=== PATIENT | male | born 1960 | race Caucasian/White ===

== ENCOUNTER 2018-02-11 07:08 | Day surgery (SDC) | payer BC ==
--- NOTE | 2018-02-11 06:26 | History and Physical - [place] ---
CHIEF COMPLAINT/HISTORY OF CHIEF COMPLAINT: This patient with an implanted spinal catheter infusion trial Hydromorphone presents for permanent pump implant. At 0.23 mg per day he is achieving 75-85% pain control. Due to the failure of all other therapies and the success of the trial, he is here for implantation of a permanent system. PAST MEDICAL HISTORY: Noncontributory. PAST SURGICAL HISTORY: Knee surgery, ankle surgery, shoulder surgery, and lumbar spinal surgery. MEDICATIONS ON ADMISSION: List to be provided. ALLERGIES: None. FAMILY/PSYCHOSOCIAL HISTORY: Social history - Caffeine. Family history - Coronary artery disease. SYSTEMS REVIEW: The patient is appropriate in no acute distress. The remainder of the systems review is positive for glasses, degenerative arthritis , and difficulty sleeping. PHYSICAL EXAMINATION: Height is 6', weight is 270. No vital signs. HEENT: Within normal limits. LUNGS: Clear. HEART: Regular rate and rhythm. ABDOMEN: Nontender. MUSCULOSKELETAL: Examination shows the dressings and closings of the implanted catheter trial still intact. The external pump is noted and infusing appropriately. Underlying pain pattern back, hip and leg. Ambulation - No assistive device utilized. NEUROLOGIC: Cranial nerves are intact. IMPRESSION: 1. 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 2. IMPLANTED SPINAL CATHETER INFUSION TRIAL OF HYDROMORPHONE. PLAN: This patient is achieving significant relief and he is here for a permanent implant. We will remove of the external components, implant the pump in the flank, and interface to the indwelling spinal catheter. The procedure will be considered outpatient although an overnight stay can be evaluated. JOB NUMBER: [id number] MTDD
[~2018-02-11 07:08] MED LIST: ACETAMINOPHEN 1,000 MG/100 ML BTL IV ONE; CEFAZOLIN 2 Gram 2 GM/50 ML BAG IVPB ONE; FAMOTIDINE 20MG TABLET PO ONE; HYDROMORPHONE HCL IV ONE; HYDROMORPHONE PF 2MG/ML AMP 0.008 MG in 0.9 % SODIUM CHLORIDE 10ML VIA 0.996 ML IV ONE; MECLIZINE 25 MG TABLET PO ONE; METOCLOPRAMIDE 10 MG TABLET PO ONE; SODIUM CHLORIDE 0.9% IV ONE
[2018-02-11] MEDS ORDERED: LIDOCAINE 2% MDV (20MG/ML) 20ML VIAL IV ONE (07:09)
[2018-02-11] MEDS ORDERED: FENTANYL PF 100MCG/2ML VIAL IV ONE (07:09)
[2018-02-11] MEDS ORDERED: PROPOFOL 10 MG/ML VIAL IV ONE (07:09)
[2018-02-11] MEDS ORDERED: CEFAZOLIN 1G VIAL IM ONE (07:09)
[2018-02-11] MEDS ORDERED: BUPIVACAINE 0.5% W/EPI MPF 30 ML VIAL IVP ONE (07:09)
[2018-02-11] MEDS ORDERED: LIDOCAINE 1% W/EPI 1:200,000 MPF 30ML SQ ONE (07:09)
[2018-02-11] MEDS ORDERED: MIDAZOLAM HCL 2MG/2ML VIAL IV ONE (07:09)
[2018-02-11] MEDS ORDERED: HYDROMORPHONE HCL 2 MG/ML VIAL IV ONE (07:09)
--- NOTE | 2018-02-14 11:15 | Operative Note ---
DATE OF SURGERY: 02/11/18 PRE-OP DIAGNOSES: 1. POST LUMBAR LAMINECTOMY SYNDROME, ICD-10 CODE = M96.1 WITH LUMBAR RADICULOPATHY, ICD-10 CODE = M54.16 AND M54.17. 2. IMPLANTED SPINAL CATHETER INFUSION TRIAL HYDROMORPHONE. OPERATION: 1. FLUOROSCOPICALLY-GUIDED INCISION, SUBCUTANEOUS DISSECTION, AND CREATION OF A SUBCUTANEOUS POUCH AT LEFT FLANK FOR PLACEMENT OF PUMP IDENTIFIED A MEDTRONIC 40 ML PROGRAMMABLE. 2. REVISION AND REMOVAL OF EXTERNAL SPINAL CATHETER. 3. REVISION AND INTERFACE INDWELLING SPINAL CATHETER WITH SECOND CATHETER COMPONENT WITH CONNECTOR. SECOND CATHETER COMPONENT INTERFACED TO PUMP IDENTIFIED A MEDTRONIC 40 ML PROGRAMMABLE PRE-FILLED HYDROMORPHONE 1 MG PER ML. 4. PLACEMENT OF PUMP CATHETER COMBINATION INTO POUCH SECURING TO POSTERIOR FASCIA USING PUMP EYELETS AND THREE NONABSORBABLE SUTURES. 5. PLACEMENT OF CURVED 24-GAUGE TINSLEY NEEDLE TO ACCESS PORT PROGRAMMABLE PUMP ASPIRATION AND CLEARING 1 ML OF CATHETER CONTENTS CLEARING CATHETER OF OPIOID AND CSF MIXTURE. 6. DIAGNOSTIC MYELOGRAPHY WITH RADIOLOGIC SUPERVISION AND INTERPRETATION USING ACCESS PORT. 7. PLACEMENT OF PUMP INTO POUCH. CLOSURE OF INCISIONS STRATAFIX SUTURE 2-0 FASCIA, 3-0 SKIN. DERMABOND CLOSURE. 8. PROGRAMMING PUMP TO DELIVER BY CONTINUOUS IN FUSION HYDROMORPHONE AT 0.3 MG PER DAY. SURGEON: DEANNA MACK D.O. ANESTHESIA: LOCAL SEDATION. ANESTHESIA PROVIDER: CHELSIE VALDES CRNA. INDICATION: This patient presents with a history of intractable post laminectomy radiculopathy. Implanted spinal catheter infusion trial Hydromorphone ongoing with 75 to 85% pain control. Due to the failure of all therapy and success of the trial, he is here for completion of the permanent implant. PROCEDURE: Intravenous line, vital sign monitoring, IV sedation, prepped and draped sterile technique. The dressing holding the external catheter was removed. The external pump was stopped, catheter clamped. Sterile prep and sterile technique. Patient prone. The left flank incision was infiltrated with local after the suture removed and an incision made and subcutaneous dissection was conducted to form a pouch of suitable size and depth for the pump identified as a Medtronic 40 mL Programmable. The external catheter connection to the internal catheter was identified in the pouch. The connector was clamped , the catheter cut and then removed by pulling away from the incision. The external catheter was then removed intact. The remaining internal catheter was then revised and resected to interface by way of a connector with a second catheter component, which would ultimately interface to the pump. A new 40 mL Programmable Medtronic pre-filled Hydromorphone 1 mg per mL was then placed onto the field. The revised catheter was interfaced to the pump. Antibiotic irrigation and Bovie for hemostasis at the pouch. The pump catheter combination was then placed into the flank pouch and secured to the posterior fascia with nonabsorbable suture. A 24-gauge Tinsley needle was inserted into the access port of the pump and 1 mL of catheter contents was aspirated clearing catheter of opioid and a CSF mixture. A diagnostic myelogram was then performed through the access port under radiologic supervision and interpretation. Contrast was identified moving through the pump catheter connection. No kinks, obstructions, or leaks. Catheter tip at T12 identified with smooth linear flow of contrast noted. Appropriate functionality was then noted. With the pump already in the pouch, the incision was then closed STRATAFIX suture 2-0 fascia and 3-0 running subcuticular. Dermabond closure over the skin. The pump was then programmed to deliver by continuous infusion Hydromorphone at 0.3 mg a day. Dermabond closure was intact and in place. He was transported to the Recovery Room stable. No side -effects from the procedure or the sedation. When fully awake and alert, he will be prepared for discharge. DISCHARGE INSTRUCTIONS: 1. Sites to remain clean and dry. No showering or bathing in any way that would result in the loss of dressing. If it happens, contact the clinic. 2. Standard medications resumed including Levaquin, the antibiotic, 500 mg once a day for 14 days. 3. Spinal opioid side-effects; respiratory depression, nausea, vomiting, constipation, urinary retention, light-headedness, or rash have all been discussed and reviewed. The office will contact the patient in 24-48 hours to set up a time in the next 7-10 days for us to look at the sites. Until then, he can shower but not sit in water. He should complete his antibiotics, keep the Dermabond dressing intact; should it come off, he should contact the clinic. All other instructions provided, numbers to contact with problems given. He will be seen in the office. cc: Dr. Cristopher Cantrell JOB NUMBER: [id number] [facility]
== END 2018-02-11 09:48 | disposition home or self-care (01) ==
LOC: SUR 07:08
PROVIDERS: ATTEND Pain Medicine Interventional Pain Medicine
DX: M96.1 Postlaminectomy syndrome, not elsewhere classified (principal); M54.16 Radiculopathy, lumbar region; M54.17 Radiculopathy, lumbosacral region; I10 Essential (primary) hypertension; E11.9 Type 2 diabetes mellitus without complications; E78.00 Pure hypercholesterolemia, unspecified
CPT/HCPCS: 62350; 62362; 00630; 62367; Q9967; J3010; J1170 ×2; J0690; C1755